=== PATIENT | male | born 1970 | race Caucasian/White ===

== ENCOUNTER 2019-10-15 09:31 | Emergency (ER) | payer OTHER ==
[~2019-10-15] VITALS: Ht 177.8 cm; Wt 90.7 kg
[~2019-10-15 09:31] MED LIST: ALLOPURINOL 30300 M2 PO; DIAZEPAM 10 MG10 M2 PO; FENOFIBRATE160 MG PO; KEFLEX500 MG PO; NORCO 10-325 T1 EACH PO; PROAIR HFA8.5 GM PO; VALIUM5 MG PO
[2019-10-15] MEDS ORDERED: TRAMADOL 50 MG50 MG PO (09:53)
[2019-10-15] MEDS ORDERED: MEDROLDOSEPACK PO (09:53)
[2019-10-15] MEDS ORDERED: INDOMETHACIN 5050 M1 PO (09:53)
[2019-10-15 09:58] VITALS: BP 160/95
== END 2019-10-15 09:58 | disposition home or self-care (01) ==
LOC: M.ERS 09:31
DX: M10.9 Gout, unspecified (principal); E78.00 Pure hypercholesterolemia, unspecified; M79.674 Pain in right toe(s)

== ENCOUNTER 2019-11-02 14:10 | Emergency (ER) | payer OTHER ==
[~2019-11-02] VITALS: Ht 177.8 cm; Wt 99.8 kg
[~2019-11-02 14:10] MED LIST changes: +INDOMETHACIN 5050 M1 PO; +MEDROLDOSEPACK PO; +TRAMADOL 50 MG50 MG PO
[2019-11-02] MEDS ORDERED: GINGER250 MG PO (14:25)
[2019-11-02] MEDS ORDERED: VITAMIN C500 M2 PO (14:26)
[2019-11-02] MEDS ORDERED: CRANBERRY400 MG PO (14:26)
[2019-11-02] MEDS ORDERED: IBU800 MG PO (16:09)
[2019-11-02] MEDS ORDERED: NORCO 5-325 TA1 EAC1 PO (16:09)
[2019-11-02 16:21] VITALS: BP 124/82
== END 2019-11-02 16:22 | disposition home or self-care (01) ==
LOC: M.ERS 14:10
DX: S52.591A Other fractures of lower end of right radius, initial encounter for closed fracture (principal); E78.00 Pure hypercholesterolemia, unspecified; M10.9 Gout, unspecified; F17.210 Nicotine dependence, cigarettes, uncomplicated; X50.1XXA Overexertion from prolonged static or awkward postures, initial encounter; Y93.89 Activity, other specified; Y92.89 Other specified places as the place of occurrence of the external cause; Y99.8 Other external cause status

== ENCOUNTER → 2021-11-18 | Emergency (ER) | payer OTHER ==
[~2021-11-18] MED LIST changes: +CRANBERRY400 MG PO; +GINGER250 MG PO; +IBU800 MG PO; +NORCO 5-325 TA1 EAC1 PO; +VITAMIN C500 M2 PO
[2021-11-18 09:30] VITALS: BP 0/0
== END ==
LOC: M.ERS 08:48
DX: M79.673 Pain in unspecified foot (principal); M79.89 Other specified soft tissue disorders; Z53.21 Procedure and treatment not carried out due to patient leaving prior to being seen by health care provider